=== PATIENT | male | born 1965 | race Caucasian/White ===

== ENCOUNTER 2019-04-02 09:03 | Emergency (ER) | payer SELFPAY ==
[~2019-04-02] VITALS: Ht 167.6 cm; Wt 96.7 kg
[~2019-04-02 09:03] MED LIST: ALBU18HF INHALATION; BUDE6.9H INHALATION; LISI-471 PO; METF-849 PO; NO MEDS
[2019-04-02 09:05] VITALS: BP 148/85; PULSE 85; RESP 26; Ht 167.6 cm; Wt 96.7 kg
[2019-04-02] MEDS ORDERED: ALBUTEROL 0.5% (NEB) 2.5 MG/0.5 ML AMP INH STA (09:52)
[2019-04-02] MEDS ORDERED: IPRATROPIUM (NEB) 0.5 MG/2.5 ML AMP NEB STA (09:52)
--- NOTE | 2019-04-02 09:59 | ERD ---
ER Documentation Chief Complaint Chief Complaint ASTHMA ATTACK - NEEDS MEDICATION REFILL HPI 53-year-old male presents to ED complaining of dry cough x2 weeks. Patient is also here for medication refills. Patient lost his [employer] insurance and does not have a primary care provider. He states that he is already applied for [employer] and will hopefully get a new primary care provider in the next 1 to 2 weeks. He states that he will follow-up with his new primary care provider for further care management. He states that he needs a refill for his albuterol inhaler, metformin, lisinopril. In addition he reports history of asthma. He states that he has not had his medications for about a month. He feels like he is wheezing. He states he was worse yesterday but feels slightly better today. He denies any fevers or chills or any other symptoms. He states he is felt like this in the past and has gotten a breathing treatment which significantly improved his symptoms. ROS All systems reviewed and are negative except as per history of present illness. Medications Home Meds Active Scripts Lisinopril* (Lisinopril*) 20 Mg Tablet, 20 MG PO DAILY, #30 TAB Prov:MAICO WINN PA-C 04/02/19 Budesonide-Formoterol Fumarate* (Symbicort*) 80-4.5 Mcg Hfa.aer.ad, 2 PUFF INHALATION BID, #1 BOTTLE Prov:MAICO WINN PA-C 04/02/19 Albuterol Sulfate* (Ventolin HFA*) 18 Gm Hfa.aer.ad, 2 PUFF INHALATION Q4H, #1 INHALER Prov:MAICO WINN PA-C 04/02/19 Metformin* (Glucophage*) 500 Mg Tab, 500 MG PO BID, #30 TAB Prov:MAICO WINN PA-C 04/02/19 Reported Medications [ No Meds] No Conflict Check 11/02/10 Allergies Allergies: Coded Allergies: No Known Drug Allergies (Verified Allergy, Mild, 07/03/13) PMhx/Soc History of Surgery: No Anesthesia Reaction: No Hx Neurological Disorder: No Hx Respiratory Disorders: Yes (athma) Hx Cardiac Disorders: Yes (htn) Hx Psychiatric Problems: No Hx Miscellaneous Medical Probl: No Hx Alcohol Use: No Hx Substance Use: No Hx Tobacco Use: No FmHx Family History: coronary disease, other; No diabetes Physical Exam Vitals Vital Signs Date Temp Pulse Resp B/P (MAP) Pulse Ox O2 O2 Flow FiO2 Time Delivery Rate 04/02/19 74 18 97 21 09:59 04/02/19 97.8 85 26 148/85 98 09:05 (106) Physical Exam Const: No acute distress Head: Atraumatic Throat: Earl and moist Resp: slight wheezing in bilat lungs Cardio: Regular rate and rhythm, Abd: Soft, non tender, non distended. Neur: Awake and alert Psych: Normal Mood and Affect Results 24 hrs Current Medications Medications Dose Sig/Kapil Start Time Status Last (Trade) Ordered Route PRN Stop Time Admin Dose Reason Admin Ipratropium 0.5 mg ONCE STAT 04/02/19 DC 04/02/19 [place] NEB 09:52 09:59 (Atrovent 04/02/19 09:54 0.02% (Neb)) Albuterol 10 mg ONCE STAT 04/02/19 DC 04/02/19 (Proventil INH 09:52 09:59 0.5% (Neb)) 04/02/19 09:54 Procedures/MDM ED COURSE: The patient was stable throughout ED course. I kept the patient informed of laboratory and diagnostic imaging results throughout the ED course. PROCEDURES: Breathing treatment: Respiratory therapy consult MEDICATIONS GIVEN: Albuterol, ipratropium Patient tolerated medication well with no adverse reactions. Patient reported improvement in pain. MEDICAL DECISION MAKING: Patient is a 53-year-old male presenting with a dry cough and asthma exacerbation in addition to medication refills. History and Physical along with other data not c/w emergent process including pneumonia, PE, abscess, pleural effusion or pneumothorax, ACS. Patient was given a breathing treatment in the ED with albuterol and ipratropium which significantly improved his symptoms. Patient states that he felt much better afterwards. Patient was given refills for his medications and on given a list of numbers in the packet to local community clinics for him to call to establish care with a primary care provider. All questions were answered. Patient was given strict return ED precautions symptoms persist or worsen. Patient agreed with plan Vital signs were reviewed. Patient is afebrile. Patient was not hypoxic. Patient was hemodynamically stable. Patient was told to follow up with primary care for further care and management. PRESCRIPTION: Albuterol, Symbicort, metformin, lisinopril DISCHARGE: At this time, patient is stable for discharge and outpatient management. I have instructed the patient to follow-up with their primary care physician in 1-2 days. I have discussed with the patient the possibility of needing to see a specialist for further workup and imaging studies if symptoms persist. I have instructed the patient to promptly return to the ER for any new or worsening symptoms including increased pain, fever, nausea, vomiting, weakness or LOC. The patient expressed understanding of and agreement with this plan. All questions were answered. Home care instructions were provided. Disclaimer: Inadvertent spelling and grammatical errors are likely due to EHR/ dictation software use and do not reflect on the overall quality of patient care. Also, please note that the electronic time recorded on this note does not necessarily reflect the actual time of the patient encounter. Departure Diagnosis: Primary Impression: Medication refill Additional Impression: Asthma Asthma severity: moderate Asthma persistence: persistent Asthma complication type: unspecified Qualified Codes: J45.40 - Moderate persistent asthma, uncomplicated Condition: Fair Patient Instructions: Taking Medicine Safely, Asthma Referrals: COMMUNITY CLINICS YOU HAVE RECEIVED A MEDICAL SCREENING EXAM AND THE RESULTS INDICATE THAT YOU DO NOT HAVE A CONDITION THAT REQUIRES URGENT TREATMENT IN THE EMERGENCY DEPARTMENT. FURTHER EVALUATION AND TREATMENT OF YOUR CONDITION CAN WAIT UNTIL YOU ARE SEEN IN YOUR DOCTORS OFFICE WITHIN THE NEXT 1-2 DAYS. IT IS YOUR RESPONSIBILITY TO MAKE AN APPOINTMENT FOR FOLOW-UP CARE. IF YOU HAVE A PRIMARY DOCTOR --you should call your primary doctor and schedule an appointment IF YOU DO NOT HAVE A PRIMARY DOCTOR YOU CAN CALL OUR PHYSICIAN REFERRAL HOTLINE AT IF YOU CAN NOT AFFORD TO SEE A PHYSICIAN YOU CAN CHOSE FROM THE FOLLOWING [facility] [address] [facility] [address] [facility] [address] [facility] [facility] [address] [facility] [address] [facility]. [facility]. [address] [facility]. [facility] YOU HAVE RECEIVED A MEDICAL SCREENING EXAM AND THE RESULTS INDICATE THAT YOU DO NOT HAVE A CONDITION THAT REQUIRES URGENT TREATMENT IN THE EMERGENCY DEPARTMENT. FURTHER EVALUATION AND TREATMENT OF YOUR CONDITION CAN WAIT UNTIL YOU ARE SEEN IN YOUR DOCTORS OFFICE WITHIN THE NEXT 1-2 DAYS. IT IS YOUR RESPONSIBILITY TO MAKE AN APPOINTMENT FOR FOLOW-UP CARE. IF YOU HAVE A PRIMARY DOCTOR --you should call your primary doctor and schedule and appointment IF YOU DO NOT HAVE A PRIMARY DOCTOR YOU CAN CALL OUR PHYSICIAN REFERRAL HOTLINE AT . IF YOU CAN NOT AFFORD TO SEE A PHYSICIAN YOU CAN CHOSE FROM THE FOLLOWING [facility] INSTITUTIONS: [facility] [address] [place] [address] [facility] [address] [place] [address] [facility] [address] [place] [address] Additional Instructions: Call 1 of the numbers in the packet to the community clinic in order to establish care with the primary care provider Call your primary care doctor TOMORROW for an appointment during the next 1-2 days.See the doctor sooner or return here if your condition worsens before your appointment time. MAICO WINN PA-C Apr 02, 2019 09:59
== END 2019-04-02 10:37 | disposition home or self-care (01) ==
LOC: FTE 09:03
DX: J45.40 Moderate persistent asthma, uncomplicated (principal); I10 Essential (primary) hypertension; Z76.0 Encounter for issue of repeat prescription; Z79.84 Long term (current) use of oral hypoglycemic drugs
CPT/HCPCS: 94644